=== PATIENT | male | born 1985 | race Caucasian/White ===

== ENCOUNTER 2018-06-30 03:33 | Emergency (ER) | payer BC ==
[~2018-06-30] VITALS: Ht 182.9 cm; Wt 88.5 kg
--- NOTE | 2018-06-30 03:48 | NUR ---
DR. GARCIA AT BEDSIDE.
[2018-06-30] MEDS ORDERED: PROCHLORPERAZINE MALEATE 10 MG TABLET PO ONE (04:00)
[2018-06-30] MEDS ORDERED: NAPROXEN 500 MG TABLET PO ONE (04:00)
[2018-06-30] MEDS ORDERED: NAPROXEN 500 MG TABLET ONE (04:05)
[2018-06-30] MEDS ORDERED: PROCHLORPERAZINE MALEATE 10 MG TABLET ONE (04:05)
[2018-06-30 04:40] VITALS: BP 117/79
--- NOTE | 2018-06-30 04:40 | NUR ---
Patient discharged to home in stable conditon. Written and verbal after care instructions given. Patient verbalizes understanding of instructions. PATIENT LEFT WITH STABLE GAIT.
== END 2018-06-30 04:41 | disposition home or self-care (01) ==
LOC: ER 03:42
DX: R51 Headache (principal); F12.10 Cannabis abuse, uncomplicated
CPT/HCPCS: 99283; A4663; Q0164